=== PATIENT | male | born 1985 ===

== ENCOUNTER 2017-12-29 21:37 | Emergency (ER) | payer SELFPAY ==
[2017-12-29] MEDS ORDERED: Sodium Chloride 0.9% 1,000 ML IV ONE (21:52)
[2017-12-29] MEDS ORDERED: Sucralfate 1 gm/10 ml Oral Susp UD PO STA (21:53)
--- NOTE | 2017-12-29 21:57 | C.PDOC ---
History Of Present Illness 32 year old male presents to the ED c/o abdominal pain, in the epigastric area. Patient reports drinking heavily last night, patient states he drank 2 bottles of vodka. Patient also reports vomiting. Patient denies fever, chills, diarrhea, dysuria, hematuria, SI/HI, hallucinations. Chief Complaint (Nursing): Substance Abuse History Per: Patient History/Exam Limitations: no limitations Onset/Duration Of Symptoms: Days Current Symptoms Are (Timing): Still Present Suicide/Self Injury Attempted (Context): None Modifying Factor(s): Alcohol Associated Symptoms: denies: Depression, Suicidal Thoughts, Suicidal Plan Recent travel outside of the [place]: No Additional History Per: Patient Past Medical History Reviewed: Historical Data, Nursing Documentation, Vital Signs Vital Signs: Last Vital Signs Temp 98.4 F 12/29/17 21:38 Pulse 111 H 12/29/17 21:38 Resp 24 12/29/17 21:38 BP 135/71 12/29/17 21:38 Pulse Ox 97 12/29/17 21:38 - Medical History PMH: No Chronic Diseases Surgical History: No Surg Hx Family History: States: Unknown Family Hx - Social History Hx Alcohol Use: Yes Hx Substance Use: No Review Of Systems Constitutional: Negative for: Fever, Chills Cardiovascular: Negative for: Chest Pain Gastrointestinal: Positive for: Vomiting, Abdominal Pain. Negative for: Nausea, Diarrhea Genitourinary: Negative for: Dysuria, Hematuria Skin: Negative for: Rash Physical Exam - Physical Exam Appears: Non-toxic, In Acute Distress (due to pain) Skin: Normal Color, Warm, Dry Head: Atraumatic, Normacephalic Eye(s): bilateral: Normal Inspection Neck: Normal ROM, Supple Chest: Symmetrical Cardiovascular: Rhythm Regular Respiratory: Normal Breath Sounds, No Rales, No Rhonchi, No Wheezing Gastrointestinal/Abdominal: Soft, Tenderness (epigastric), No Guarding, No Rebound Extremity: Normal ROM, No Tenderness, No Swelling Neurological/Psych: Oriented x3, Normal Speech, Normal Cognition Gait: Steady ED Course And Treatment - Laboratory Results Result Diagrams: 12/29/17 22:15 12/29/17 22:15 ECG: Interpreted By Me, Viewed By Me ECG Rhythm: Sinus Rhythm ECG Interpretation: Normal, No Acute Changes Interpretation Of ECG: NSR, normal tracings. Rate From EC O2 Sat by Pulse Oximetry: 97 (ON RA) Pulse Ox Interpretation: Normal Medical Decision Making Medical Decision Making: Plan: * Labs * Carafate 1 gm PO * Protonix 40 mg IVP * IV fluids * UA Disposition Counseled Patient/Family Regarding: Diagnosis - Disposition Referrals: [facility] [Outside] Disposition: HOME/ ROUTINE Disposition Time: 02:04 Condition: STABLE Prescriptions: Famotidine [Pepcid] 20 mg PO BID #30 tab Sucralfate [Carafate] 1 gm PO BID #20 oral.susp Instructions: Gastritis, Alcohol Abuse and Alcoholism (DC), Effects of Alcohol on Your Health, Ulcer and Gastritis Diet Forms: [employer] (Vietnamese) - POA Present On Arrival: None - Clinical Impression Clinical Impression: Alcohol abuse, Alcoholic gastritis with bleeding - Scribe Statement The provider has reviewed the documentation as recorded by the Scribe Mikal Mackay All medical record entries made by the Scribe were at my direction and personally dictated by me. I have reviewed the chart and agree that the record accurately reflects my personal performance of the history, physical exam, medical decision making, and the department course for this patient. I have also personally directed, reviewed, and agree with the discharge instructions and disposition.
[2017-12-29] MEDS ORDERED: Sodium Chloride 0.9% 1,000 ML ONE (22:05)
[2017-12-29 22:18] LABS: BASO % 0.3 % (0.0-2.0); HEMOGLOBIN 15.8 g/dL (12.0-18.0); LYMPH % 15.9 % (20.0-40.0); MEAN CORPUSCULAR HEMOGLOBIN 31.5 pg (27.0-31.0); MEAN PLATELET VOLUME 7.8 fL (7.2-11.7); MONO # 0.9 K/uL (0.0-0.8); MONO % 7.4 % (0.0-10.0); NEUT # 9.8 K/uL (1.8-7.0); NEUT % 76.4 % (50.0-75.0); RBC 5.01 Mil/uL (4.40-5.90); RED CELL DISTRIBUTION WIDTH 12.8 % (11.5-14.5); WHITE BLOOD COUNT 12.8 K/uL (4.8-10.8)
[2017-12-29 22:30] LABS: ALB/GLOB RATIO 1.7 (1.0-2.1); ALBUMIN 4.7 g/dL (3.5-5.0); ALT/SGPT 85 U/L (21-72); AST/SGOT 45 U/L (17-59); BLOOD UREA NITROGEN 8 mg/dL (9-20); CALCIUM 9.3 mg/dl (8.6-10.4); GFR NON-AFRICAN AMERICAN > 60; LIPASE 76 U/L (23-300)
[2017-12-30 00:39] LABS: GRANULAR CAST 1 /lpf (0-1); URINE BILIRUBIN NEGATIVE (NEGATIVE); URINE BLOOD NEGATIVE (NEGATIVE); URINE CLARITY Clear (Clear); URINE COLOR Yellow (YELLOW); URINE GLUCOSE (UA) NORMAL (Normal); URINE LEUKOCYTE ESTERASE NEG Leu/uL (Negative); URINE PROTEIN NEGATIVE (NEGATIVE); URINE UROBILINOGEN NORMAL mg/dL (0.2-1.0)
[2017-12-30 01:56] VITALS: BP 155/92; PULSE 96; RESP 16; TEMP 98.6
[2017-12-30 02:07] VITALS: O2SAT 97
--- NOTE | 2017-12-31 20:27 | CARD ---
APPROVED REPORT Date of service: 12/30/2017 EKG Measurement Heart [id number] <Conclusion> Normal sinus rhythm Normal ECG
== END 2017-12-30 02:20 | disposition home or self-care (01) ==
LOC: C.ER 21:37
DX: K29.21 Alcoholic gastritis with bleeding (principal); F10.10 Alcohol abuse, uncomplicated; Y90.9 Presence of alcohol in blood, level not specified
CPT/HCPCS: 80053; 81001; 82948; 83690; 85025; 93005; 96361; 96374; 99285; C9113; G0480; J7030